=== PATIENT | female | born 1955 | race African-American/Black ===

== ENCOUNTER 2021-11-27 17:48 | Inpatient (IN) ==
[2021-11-27] MEDS ORDERED: ONDANSETRON 4 MG/2 ML VIAL IV STA (20:43)
[2021-11-27] MEDS ORDERED: KETOROLAC 30 MG/1 ML VIAL IV STA (20:43)
[2021-11-27] MEDS ORDERED: SODIUM CHLORIDE 0.9% 500 ML IV STA (20:43)
[2021-11-27] MEDS ORDERED: HYDROmorphone 2 MG/1 ML VIAL IV STA (20:43)
[2021-11-27 21:43] LABS: Basophils % 0.2 % (0.0-0.8); Eosinophils % 0.2 % (0.00-10.9); Hematocrit 35.5 VOL% (35.7-47.0); Hemoglobin 11.2 GM/DL (12.0-16.0); Immature Granulocytes % 0.6 %; Immature Granulocytes Absolute 0.06 #; Lymphocytes # 0.9 10*3/uL (1.4-4.0); Lymphocytes % 8.2 % (21.3-54.2); Mean Corpuscular HGB Conc 31.5 GM/DL (32-36); Monocytes % 9.7 % (1.7-12.7); Neutrophils % 81.1 % (38.7-73.9); Platelet Count 192 T/CUMM (130-400); Red Blood Count 3.99 MC/CUMM (3.8-5.5); Red Cell Distribution Width 15.5 % (9.3-17.3); White Blood Count 10.6 T/CUMM (4-12)
[2021-11-27 22:02] LABS: Ammonia < 10 UMOL/L (11-32)
[2021-11-27 22:05] LABS: Lactic Acid 1.6 MMOL/L (0.4-2.0)
[2021-11-27 22:10] LABS: Mucus,Urine Occasional /LPF (Occasional); RBC,Urine 473 /HPF (0-4); Squamous Epithelial Cell,Urine Occasional /HPF (0-10)
[2021-11-27 22:11] LABS: Glucose,Urine (UA) Negative (Negative); Protein,Urine Trace MG/DL; Urine Appearance Slightly Cloudy (Clear); Urine Color Yellow (Yellow); Urine pH 6.5 (4.5-8.0)
[2021-11-27 22:12] LABS: Bilirubin,Urine Negative (Negative); Blood, Urine Large mg/dL (Negative); Ketones,Urine Small mg/dL (Negative); Nitrite,Urine Negative (Negative); Urine Urobilinogen 0.2 EU/DL (<2.0)
[2021-11-27 22:52] LABS: Barbiturates Screen,Urine Negative (Negative); Benzodiazepines Screen,Urine Negative (Negative); Cannabinoid Screen,Urine Negative (Negative); Opiate Screen,Urine Positive (Negative); Phencyclidine Screen,Urine Negative (Negative)
[2021-11-27 22:59] LABS: Alanine Aminotransferase 19 U/L (13-56); Albumin 3.5 G/DL (3.4-5.0); Alkaline Phosphatase 140 U/L (45-117); Amylase 23 U/L (25-115); Aspartate Amino Transferase 40 U/L (0-37); Blood Urea Nitrogen 9 MG/DL (7-18); Carbon Dioxide 29 MMOL/L (21-32); Estimated Glom Filtration Rate 156 ML/MIN; Glucose 101 MG/DL (74-106); Osmolality,Calculated 281.1 MOS/KG (273-304); Sodium 142 MMOL/L (136-145)
[2021-11-27 23:01] LABS: Calcium 14.7 MG/DL (8.5-10.1)
[2021-11-27] MEDS ORDERED: SODIUM CHLORIDE 0.9% 1,000 ML IV STA (23:07)
[2021-11-27] MEDS ORDERED: POTASSIUM CHLORIDE 20 MEQ TABLET PO STA (23:07)
[2021-11-27] MEDS ORDERED: MAGNESIUM SULF RIDER 2 GM/50 ML PREMIX IV STA (23:07)
[2021-11-27] MEDS ORDERED: FUROSEMIDE 40 MG/4 ML VIAL IV STA (23:08)
[2021-11-28] MEDS ORDERED: GLUCAGON 1 MG VIAL IM PRN (00:19)
[2021-11-28] MEDS ORDERED: ACETAMINOPHEN 325 MG TABLET PO PRN (00:27)
[2021-11-28] MEDS ORDERED: SIMETHICONE CHEW 125 MG TABLET PO PRN (00:27)
[2021-11-28] MEDS ORDERED: hydrALAZINE 20 MG/1 ML VIAL IV PRN (00:27)
[2021-11-28] MEDS ORDERED: POTASSIUM CHLORIDE 20 MEQ TABLET PO PRN (00:37)
[2021-11-28] MEDS ORDERED: MAGNESIUM SULF RIDER 4 GM/100 ML PREMIX IV PRN (00:37)
[2021-11-28] MEDS ORDERED: DEXTROSE 10% 250 ML BAG IV PRN (00:40)
[2021-11-28] MEDS ORDERED: ENOXAPARIN 40 MG/0.4 ML SYRINGE SUBCUT ONE (01:00)
[2021-11-28 04:44] LABS: Basophils % 0.3 % (0.0-0.8); Eosinophils % 0.2 % (0.00-10.9); Hematocrit 40.8 VOL% (35.7-47.0); Hemoglobin 12.8 GM/DL (12.0-16.0); Immature Granulocytes % 0.5 %; Immature Granulocytes Absolute 0.04 #; Lymphocytes # 0.8 10*3/uL (1.4-4.0); Lymphocytes % 9.7 % (21.3-54.2); Mean Corpuscular HGB Conc 31.4 GM/DL (32-36); Mean Corpuscular Volume 90.1 FL (87-102); Mean Platelet Volume 13.1 FL (9.6-12.0); Monocytes % 8.8 % (1.7-12.7); Neutrophils % 80.5 % (38.7-73.9); Platelet Count 174 T/CUMM (130-400); Red Blood Count 4.53 MC/CUMM (3.8-5.5); Red Cell Distribution Width 15.7 % (9.3-17.3); White Blood Count 8.6 T/CUMM (4-12)
[2021-11-28 05:02] LABS: Parathyroid Hormone Intact < 6.3 PG/ML (18.4-80.1)
[2021-11-28] MEDS: LACTATED RINGERS 1,000 ML IV SCH ×2 (05:02→17:11)
[2021-11-28 05:05] LABS: Ferritin 968.8 ng/mL (8-252)
[2021-11-28 05:08] LABS: Folate 10.09 NG/ML (5.38-24.0); Vitamin B12 949 PG/ML (211-911)
[2021-11-28 05:10] LABS: Potassium 3.3 MMOL/L (3.5-5.1); Risk Ratio 1.96; Thyroid Stimulating Hormone 0.861 uIU/ml (0.358-3.74); VLDL Cholesterol 14.6 MG/DL
[2021-11-28] MEDS ORDERED: ZOLEDRONIC ACID 4 MG/100 ML PREMIX IV ONE (05:25)
[2021-11-28] MEDS: ONDANSETRON 4 MG/2 ML VIAL IV PRN (05:38)
[2021-11-28] MEDS: oxyCODONE/ACETAMINOPHEN 5-325 MG TABLET PO PRN (05:51)
[2021-11-28 05:54] LABS: Sedimentation Rate-Westergren 63 MM/HR (0-30)
[2021-11-28] MEDS ORDERED: oxyCODONE/ACETAMINOPHEN 5-325 MG TABLET PO PRN (08:28)
[2021-11-28 08:42] LABS: Hemoglobin A1 (Alkaline) 97.2 % (96.5-98.5); Hemoglobin A2 (Alkaline) 2.8 % (1.5-3.5)
[2021-11-28] MEDS: POTASSIUM CHLORIDE 10 MEQ TABLET PO SCH (08:50)
[2021-11-28] MEDS: MORPHINE ER 15 MG TABLET PO SCH ×2 (08:50→20:12)
[2021-11-28] MEDS: PREGABALIN 100 MG CAPSULE PO SCH ×2 (08:50→20:12)
[2021-11-28] MEDS: cloNIDine 0.1 MG TABLET PO SCH (08:50)
[2021-11-28] MEDS: ASPIRIN EC 81 MG TABLET PO SCH (08:50)
[2021-11-28] MEDS: LOSARTAN 50 MG TABLET PO SCH (08:51)
[2021-11-28] MEDS: SIMVASTATIN 10 MG TABLET PO SCH (08:51)
[2021-11-28] MEDS: PANTOPRAZOLE 40 MG TABLET PO SCH (08:51)
[2021-11-28 09:14] LABS: Total Protein 8.2 G/DL (6.4-8.2)
[2021-11-28] MEDS: MORPHINE 4 MG/1 ML VIAL IV PRN (09:34)
[2021-11-28] MEDS: DOCUSATE SODIUM 100 MG CAPSULE PO SCH ×2 (09:39→20:11)
[2021-11-28 11:05] LABS: Osmolality,Calculated 275.5 MOS/KG (273-304); Potassium 3.3 MMOL/L (3.5-5.1)
[2021-11-28 11:08] LABS: Calcium 14.1 MG/DL (8.5-10.1)
[2021-11-28] MEDS ORDERED: CALCITONIN 400 UNIT/2 ML VIAL SUBCUT ONE (16:00)
[2021-11-28 16:13] LABS: Osmolality,Calculated 272.7 MOS/KG (273-304); Potassium 3.4 MMOL/L (3.5-5.1)
[2021-11-28] MEDS ORDERED: ENOXAPARIN 40 MG/0.4 ML SYRINGE SUBCUT SCH (21:00)
[2021-11-28 22:14] LABS: Calcium 12.9 MG/DL (8.5-10.1); Osmolality,Calculated 280.1 MOS/KG (273-304); Potassium 3.3 MMOL/L (3.5-5.1)
[2021-11-29] MEDS: ONDANSETRON 4 MG/2 ML VIAL IV PRN (00:07)
[2021-11-29] MEDS: oxyCODONE/ACETAMINOPHEN 5-325 MG TABLET PO PRN ×3 (00:17→23:55)
[2021-11-29] MEDS: LACTATED RINGERS 1,000 ML IV SCH ×4 (01:26→21:05)
[2021-11-29 04:44] LABS: Basophils % 0.4 % (0.0-0.8); Eosinophils # 0.1 10*3/uL (0.0-0.87); Eosinophils % 0.6 % (0.00-10.9); Hematocrit 34.8 VOL% (35.7-47.0); Hemoglobin 10.9 GM/DL (12.0-16.0); Immature Granulocytes % 0.2 %; Immature Granulocytes Absolute 0.02 #; Lymphocytes # 1.1 10*3/uL (1.4-4.0); Lymphocytes % 13.2 % (21.3-54.2); Mean Corpuscular HGB Conc 31.3 GM/DL (32-36); Mean Corpuscular Volume 88.1 FL (87-102); Monocytes % 11.9 % (1.7-12.7); Neutrophils % 73.7 % (38.7-73.9); Platelet Count 142 T/CUMM (130-400); Red Blood Count 3.95 MC/CUMM (3.8-5.5); Red Cell Distribution Width 15.9 % (9.3-17.3); White Blood Count 8.1 T/CUMM (4-12)
[2021-11-29 04:55] LABS: INR 1.1; PT Patient Result 12.6 SECS (10.5-12.0)
[2021-11-29 05:13] LABS: Albumin 2.6 G/DL (3.4-5.0); Bilirubin,Total 0.4 MG/DL (0.20-1.00); Osmolality,Calculated 280.1 MOS/KG (273-304); Potassium 3.2 MMOL/L (3.5-5.1)
[2021-11-29 07:43] LABS: Total Protein (Chem) 8.2 G/DL (6.4-8.3)
[2021-11-29 07:45] LABS: Albumin (SPE) 4.7 G/DL (3.2-5.3); Albumin (SPE) Rel % 57.3 %; Alpha 1 (SPE) 0.3 G/DL (0.1-0.4); Alpha 1 (SPE) Rel % 3.7 %; Alpha 2 (SPE) 1.1 G/DL (0.4-1.0); Alpha 2 (SPE) Rel % 13.2 %; Beta (SPE) Rel % 12.6 %; Gamma (SPE) 1.1 G/DL (0.7-1.7); Gamma (SPE) Rel % 13.2 %
[2021-11-29] MEDS: DOCUSATE SODIUM 100 MG CAPSULE PO SCH ×2 (08:29→22:38)
[2021-11-29] MEDS: cloNIDine 0.1 MG TABLET PO SCH (08:29)
[2021-11-29] MEDS: PREGABALIN 100 MG CAPSULE PO SCH ×2 (08:29→22:38)
[2021-11-29] MEDS: ASPIRIN EC 81 MG TABLET PO SCH (08:29)
[2021-11-29] MEDS: LOSARTAN 50 MG TABLET PO SCH (08:29)
[2021-11-29] MEDS: POTASSIUM CHLORIDE 10 MEQ TABLET PO SCH (08:29)
[2021-11-29] MEDS: MORPHINE ER 15 MG TABLET PO SCH ×3 (08:30→23:00)
[2021-11-29] MEDS: SIMVASTATIN 10 MG TABLET PO SCH (08:30)
[2021-11-29] MEDS: PANTOPRAZOLE 40 MG TABLET PO SCH (08:30)
[2021-11-29] MEDS ORDERED: DIAZEPAM 5 MG TABLET PO ONE (11:47)
[2021-11-29 12:41] LABS: Immunoglobulin A 360 MG/DL (70-400); Immunoglobulin G 1080 MG/DL (700-1600); Immunoglobulin M 94 MG/DL (40-230)
[2021-11-29] MEDS ORDERED: ALPRAZolam 0.25 MG TABLET PO ONE (13:06)
[2021-11-29] MEDS: POTASSIUM CHLORIDE RIDER 10 MEQ/100 ML PREMIX IV PRN ×4 (13:11→18:30)
[2021-11-29 15:41] LABS: Kappa Free Light Chain 1.93 mg/dL; Lambda Free Light Chain 2.01 mg/dL
[2021-11-29] MEDS: MORPHINE 4 MG/1 ML VIAL IV PRN (22:07)
[2021-11-29] MEDS: MIRTAZAPINE 15 MG TABLET PO SCH (22:39)
[2021-11-30 02:48] LABS: Basophils % 0.2 % (0.0-0.8); Eosinophils # 0.1 10*3/uL (0.0-0.87); Eosinophils % 0.9 % (0.00-10.9); Hematocrit 34.9 VOL% (35.7-47.0); Immature Granulocytes % 0.4 %; Immature Granulocytes Absolute 0.03 #; Lymphocytes # 0.9 10*3/uL (1.4-4.0); Lymphocytes % 11.1 % (21.3-54.2); Mean Corpuscular HGB Conc 31.5 GM/DL (32-36); Mean Corpuscular Volume 88.4 FL (87-102); Mean Platelet Volume 12.4 FL (9.6-12.0); Monocytes % 11.7 % (1.7-12.7); Neutrophils % 75.7 % (38.7-73.9); Platelet Count 130 T/CUMM (130-400); Red Blood Count 3.95 MC/CUMM (3.8-5.5); Red Cell Distribution Width 15.7 % (9.3-17.3); White Blood Count 8.2 T/CUMM (4-12)
[2021-11-30 03:13] LABS: Alanine Aminotransferase 17 U/L (13-56); Albumin 2.5 G/DL (3.4-5.0); Alkaline Phosphatase 104 U/L (45-117); Aspartate Amino Transferase 34 U/L (0-37); Bilirubin,Total < 0.39 MG/DL (0.20-1.00); Blood Urea Nitrogen 8 MG/DL (7-18); Calcium 10.4 MG/DL (8.5-10.1); Carbon Dioxide 28 MMOL/L (21-32); Estimated Glom Filtration Rate 157 ML/MIN; Glucose 72 MG/DL (74-106); Osmolality,Calculated 269.8 MOS/KG (273-304); Potassium 3.1 MMOL/L (3.5-5.1); Sodium 137 MMOL/L (136-145); Total Protein 6.8 G/DL (6.4-8.2)
[2021-11-30] MEDS ORDERED: METOPROLOL TARTRATE 5 MG/5 ML VIAL IV ONE (03:24)
[2021-11-30] MEDS: MAGNESIUM SULF RIDER 2 GM/50 ML PREMIX IV PRN (04:11)
[2021-11-30] MEDS: MORPHINE 4 MG/1 ML VIAL IV PRN (04:59)
[2021-11-30] MEDS: POTASSIUM CHLORIDE RIDER 10 MEQ/100 ML PREMIX IV PRN ×2 (05:00→06:00)
[2021-11-30] MEDS: oxyCODONE/ACETAMINOPHEN 5-325 MG TABLET PO PRN ×3 (07:06→18:22)
[2021-11-30] MEDS: LACTATED RINGERS 1,000 ML IV SCH (07:06)
[2021-11-30] MEDS ORDERED: DEXAMETHASONE INJ 10 MG in SODIUM CHLORIDE 0.9% 50 ML IV SCH (09:00)
[2021-11-30] MEDS: ASPIRIN EC 81 MG TABLET PO SCH (09:11)
[2021-11-30] MEDS: LOSARTAN 50 MG TABLET PO SCH (09:11)
[2021-11-30] MEDS: POTASSIUM CHLORIDE 20 MEQ TABLET PO SCH (09:11)
[2021-11-30] MEDS: DOCUSATE SODIUM 100 MG CAPSULE PO SCH ×2 (09:12→20:19)
[2021-11-30] MEDS: SIMVASTATIN 10 MG TABLET PO SCH (09:12)
[2021-11-30] MEDS: PANTOPRAZOLE 40 MG TABLET PO SCH (09:12)
[2021-11-30] MEDS: PREGABALIN 100 MG CAPSULE PO SCH (09:12)
[2021-11-30] MEDS: cloNIDine 0.1 MG TABLET PO SCH (09:13)
[2021-11-30] MEDS: METOPROLOL TARTRATE 25 MG TABLET PO SCH (09:15)
[2021-11-30] MEDS: MORPHINE ER 15 MG TABLET PO SCH ×2 (09:15→20:19)
[2021-11-30] MEDS ORDERED: MAGNESIUM CITRATE 300 ML BOTTLE PO ONE (10:34)
[2021-11-30 11:36] LABS: Arterial Base Excess iSTAT 2 MMOL/L (-2.5-2.5); Arterial Bicarbonate iSTAT 27.5 MMOL/L (20-26); Arterial O2 Saturation iSTAT 98 % (95-100); Arterial PCO2 iSTAT 45 MM HG (35-48); Arterial PO2 iSTAT 112 MM HG (80-95); Arterial Total CO2 iSTAT 29 MMO/L (23-27); Arterial pH iSTAT 7.396 (7.35-7.45)
[2021-11-30] MEDS: LINACLOTIDE 145 MCG CAPSULE PO SCH (12:22)
[2021-11-30] MEDS: NYSTATIN 500,000 UNIT/5 ML UDCUP SWISH/SWAL SCH ×3 (13:43→20:18)
[2021-11-30] MEDS: DEXAMETHASONE INJ 20 MG in SODIUM CHLORIDE 0.9% 50 ML IV SCH (17:27)
[2021-11-30] MEDS: MIRTAZAPINE 15 MG TABLET PO SCH (20:19)
[2021-11-30] MEDS ORDERED: MELATONIN 3 MG TABLET PO ONE (21:28)
[2021-12-01] MEDS: oxyCODONE/ACETAMINOPHEN 5-325 MG TABLET PO PRN ×2 (03:40→08:26)
[2021-12-01 05:31] LABS: Basophils % 0.1 % (0.0-0.8); Hematocrit 34.6 VOL% (35.7-47.0); Immature Granulocytes % 0.3 %; Immature Granulocytes Absolute 0.02 #; Lymphocytes # 0.4 10*3/uL (1.4-4.0); Lymphocytes % 6.2 % (21.3-54.2); Mean Corpuscular HGB Conc 31.8 GM/DL (32-36); Mean Corpuscular Volume 87.6 FL (87-102); Monocytes % 1.3 % (1.7-12.7); Neutrophils % 92.1 % (38.7-73.9); Platelet Count 123 T/CUMM (130-400); Red Blood Count 3.95 MC/CUMM (3.8-5.5); Red Cell Distribution Width 15.5 % (9.3-17.3); White Blood Count 6.7 T/CUMM (4-12)
[2021-12-01 05:50] LABS: Albumin 2.7 G/DL (3.4-5.0); Bilirubin,Total 0.4 MG/DL (0.20-1.00); Calcium 9.6 MG/DL (8.5-10.1); Osmolality,Calculated 277.4 MOS/KG (273-304); Potassium 3.6 MMOL/L (3.5-5.1); Total Protein 7.5 G/DL (6.4-8.2)
[2021-12-01 06:13] LABS: Band Neutrophils 1 % (0-10); Hypochromia 1+; Lymphocytes 4 % (20-55); Microcytosis 1+; Platelet Estimate Adequate; Segmented Neutrophils 92 % (50-85); Total Cells Counted 100
[2021-12-01] MEDS: PANTOPRAZOLE 40 MG TABLET PO SCH (08:24)
[2021-12-01] MEDS: DOCUSATE SODIUM 100 MG CAPSULE PO SCH ×2 (08:24→21:06)
[2021-12-01] MEDS: LOSARTAN 50 MG TABLET PO SCH (08:24)
[2021-12-01] MEDS: ASPIRIN EC 81 MG TABLET PO SCH (08:25)
[2021-12-01] MEDS: MORPHINE ER 15 MG TABLET PO SCH ×2 (08:26→21:06)
[2021-12-01] MEDS: LINACLOTIDE 145 MCG CAPSULE PO SCH (08:26)
[2021-12-01] MEDS: METOPROLOL TARTRATE 25 MG TABLET PO SCH (08:26)
[2021-12-01] MEDS: POTASSIUM CHLORIDE 20 MEQ TABLET PO SCH (08:27)
[2021-12-01] MEDS: NYSTATIN 500,000 UNIT/5 ML UDCUP SWISH/SWAL SCH ×4 (08:27→21:07)
[2021-12-01] MEDS: MAGNESIUM SULF RIDER 2 GM/50 ML PREMIX IV PRN (08:34)
[2021-12-01] MEDS ORDERED: METHYLNALTREXONE 12 MG/0.6 ML VIAL SUBCUT ONE (09:07)
[2021-12-01] MEDS: PREGABALIN 100 MG CAPSULE PO SCH ×2 (10:46→21:06)
[2021-12-01] MEDS: SIMVASTATIN 10 MG TABLET PO SCH (10:46)
[2021-12-01] MEDS: DEXAMETHASONE INJ 20 MG in SODIUM CHLORIDE 0.9% 50 ML IV SCH (10:50)
[2021-12-01 11:06] LABS: % Iron Saturation 13.1 % (18-50); Ferritin 987.2 ng/mL (8-252)
[2021-12-01] MEDS ORDERED: ENOXAPARIN 40 MG/0.4 ML SYRINGE SUBCUT SCH (12:00)
[2021-12-01] MEDS: levETIRAcetam 500 MG TABLET PO SCH ×2 (12:05→21:07)
[2021-12-01] MEDS: FLUCONAZOLE INJ 200 MG/100 ML PREMIX IV SCH (12:06)
[2021-12-01] MEDS: NICOTINE 21 MG/24 HR PATCH TRANSDERM SCH (12:06)
[2021-12-01 13:38] LABS: Total Protein 24 Hr Ur Result 432 MG/24HR (0-149.1); Total Volume,Urine 1600 ML (400-2000)
[2021-12-01] MEDS: MIRTAZAPINE 15 MG TABLET PO SCH (21:06)
[2021-12-02] MEDS ORDERED: MELATONIN 3 MG TABLET PO PRN (01:25)
[2021-12-02 05:59] LABS: Basophils % 0.1 % (0.0-0.8); Hematocrit 32.4 VOL% (35.7-47.0); Hemoglobin 10.6 GM/DL (12.0-16.0); Immature Granulocytes % 0.3 %; Immature Granulocytes Absolute 0.03 #; Lymphocytes # 0.4 10*3/uL (1.4-4.0); Lymphocytes % 3.7 % (21.3-54.2); Mean Corpuscular HGB Conc 32.7 GM/DL (32-36); Mean Corpuscular Volume 85.5 FL (87-102); Mean Platelet Volume 13.1 FL (9.6-12.0); Monocytes % 5.6 % (1.7-12.7); Neutrophils % 90.3 % (38.7-73.9); Platelet Count 138 T/CUMM (130-400); Red Blood Count 3.79 MC/CUMM (3.8-5.5); Red Cell Distribution Width 15.6 % (9.3-17.3); White Blood Count 9.3 T/CUMM (4-12)
[2021-12-02 06:17] LABS: Alanine Aminotransferase 23 U/L (13-56); Albumin 2.7 G/DL (3.4-5.0); Alkaline Phosphatase 103 U/L (45-117); Aspartate Amino Transferase 34 U/L (0-37); Bilirubin,Total < 0.39 MG/DL (0.20-1.00); Blood Urea Nitrogen 14 MG/DL (7-18); Carbon Dioxide 27 MMOL/L (21-32); Estimated Glom Filtration Rate 157 ML/MIN; Glucose 125 MG/DL (74-106); Osmolality,Calculated 278.5 MOS/KG (273-304); Potassium 3.3 MMOL/L (3.5-5.1); Sodium 139 MMOL/L (136-145); Total Protein 7.1 G/DL (6.4-8.2)
[2021-12-02 06:21] LABS: Lymphocytes 3 % (20-55); Segmented Neutrophils 92 % (50-85); Total Cells Counted 100
[2021-12-02 06:22] LABS: Hypochromia Slight; Microcytosis Slight; Platelet Estimate Adequate
[2021-12-02 07:07] LABS: 24 Hr Protein (Bench) 432 MG/24HR (0-149.1); Immunoglobulin A (Chem) 360 MG/DL (70-400); Immunoglobulin G (Chem) 1080 MG/DL (700-1600); Immunoglobulin M (Chem) 94 MG/DL (40-230)
[2021-12-02 08:11] VITALS: BP 119/70
[2021-12-02] MEDS: ASPIRIN EC 81 MG TABLET PO SCH (08:17)
[2021-12-02] MEDS: POTASSIUM CHLORIDE 20 MEQ TABLET PO SCH (08:17)
[2021-12-02] MEDS: PREGABALIN 100 MG CAPSULE PO SCH (08:18)
[2021-12-02] MEDS: DOCUSATE SODIUM 100 MG CAPSULE PO SCH (08:18)
[2021-12-02] MEDS: PANTOPRAZOLE 40 MG TABLET PO SCH (08:18)
[2021-12-02] MEDS: MORPHINE ER 15 MG TABLET PO SCH (08:18)
[2021-12-02] MEDS: levETIRAcetam 500 MG TABLET PO SCH (08:18)
[2021-12-02] MEDS: SIMVASTATIN 10 MG TABLET PO SCH (08:18)
[2021-12-02] MEDS: NICOTINE 21 MG/24 HR PATCH TRANSDERM SCH (08:19)
[2021-12-02] MEDS: DEXAMETHASONE INJ 20 MG in SODIUM CHLORIDE 0.9% 50 ML IV SCH (08:19)
[2021-12-02] MEDS: LOSARTAN 50 MG TABLET PO SCH (08:22)
[2021-12-02] MEDS: METOPROLOL TARTRATE 25 MG TABLET PO SCH (08:25)
[2021-12-02] MEDS: NYSTATIN 500,000 UNIT/5 ML UDCUP SWISH/SWAL SCH (08:33)
[2021-12-02] MEDS: LINACLOTIDE 145 MCG CAPSULE PO SCH (09:43)
[2021-12-02] MEDS: FLUCONAZOLE INJ 200 MG/100 ML PREMIX IV SCH (11:31)
== END 2021-12-02 11:27 | disposition home health service (06) | DRG 425 ==
LOC: N.ED 17:48 → N.EDINP 11-28 00:19 → SUATTDRO 11-28 00:19 → N.TELES 11-28 01:59
PROVIDERS: ADMIT Hospitalist; ATTEND Internal Medicine Geriatric Medicine

== ENCOUNTER 2022-01-06 14:19 | Inpatient (IN) ==
[2022-01-06] MEDS ORDERED: SODIUM CHLORIDE 0.9% 1,000 ML IV STA (14:24)
[2022-01-06 14:43] LABS: Arterial Base Excess iSTAT 0 MMOL/L (-2.5-2.5); Arterial Bicarbonate iSTAT 25.4 MMOL/L (20-26); Arterial O2 Saturation iSTAT 93 % (95-100); Arterial PCO2 iSTAT 43 MM HG (35-48); Arterial PO2 iSTAT 68 MM HG (80-95); Arterial Total CO2 iSTAT 27 MMO/L (23-27); Arterial pH iSTAT 7.376 (7.35-7.45)
[2022-01-06] MEDS ORDERED: MIDAZOLAM 2 MG/2 ML VIAL ONE (14:48)
[2022-01-06] MEDS ORDERED: MIDAZOLAM 2 MG/2 ML VIAL IV STA ×2 (14:48→15:41)
[2022-01-06] MEDS ORDERED: ETOMIDATE 20 MG/10 ML VIAL IV ONE (14:48)
[2022-01-06] MEDS ORDERED: NOREPINEPHRINE 4 MG/4 ML VIAL IV ONE (14:53)
[2022-01-06] MEDS: NOREPINEPHRINE 8 MG in SODIUM CHLORIDE 0.9% 242 ML IV PRN (15:00)
[2022-01-06] MEDS ORDERED: ROCURONIUM 100 MG/10 ML VIAL IV ONE (15:23)
[2022-01-06] MEDS ORDERED: ROCURONIUM 100 MG/10 ML VIAL IV STA (15:35)
[2022-01-06] MEDS ORDERED: PIPERACILLIN/TAZOBACTAM 3,375 MG in SODIUM CHLORIDE 0.9% 100 ML IV STA (16:03)
[2022-01-06] MEDS: MIDAZOLAM 100 MG in SODIUM CHLORIDE 0.9% 80 ML IV PRN (16:05)
[2022-01-06 16:10] LABS: Basophils % 0.1 % (0.0-0.8); Hematocrit 38.8 VOL% (35.7-47.0); Immature Granulocytes % 0.8 %; Immature Granulocytes Absolute 0.07 #; Lymphocytes # 0.5 10*3/uL (1.4-4.0); Lymphocytes % 5.8 % (21.3-54.2); Mean Corpuscular HGB Conc 30.9 GM/DL (32-36); Mean Corpuscular Volume 93.7 FL (87-102); Mean Platelet Volume 12.4 FL (9.6-12.0); Monocytes # 0.5 10*3/uL (0.11-0.8); Neutrophils % 87.3 % (38.7-73.9); Platelet Count 127 T/CUMM (130-400); Red Blood Count 4.14 MC/CUMM (3.8-5.5); Red Cell Distribution Width 18.2 % (9.3-17.3); White Blood Count 8.9 T/CUMM (4-12)
[2022-01-06] MEDS ORDERED: SODIUM CHLORIDE 0.9% 2,000 ML IV STA (16:13)
[2022-01-06 16:17] LABS: Hyaline Casts,Urine 53 /LPF (0-3); Mucus,Urine Few /LPF (Occasional); RBC,Urine 24 /HPF (0-4); Squamous Epithelial Cell,Urine Occasional /HPF (0-10)
[2022-01-06 16:20] LABS: Urine Color Yellow (Yellow)
[2022-01-06 16:21] LABS: Bilirubin,Urine Negative (Negative); Blood, Urine Moderate mg/dL (Negative); Glucose,Urine (UA) Negative (Negative); Ketones,Urine Negative (Negative); Nitrite,Urine Negative (Negative); Protein,Urine 30 mg/dL (Negative); Urine Appearance Slightly Cloudy (Clear)
[2022-01-06 16:31] LABS: Albumin 2.1 G/DL (3.4-5.0); Bilirubin,Total 0.8 MG/DL (0.20-1.00); Calcium 9.7 MG/DL (8.5-10.1); Osmolality,Calculated 293.1 MOS/KG (273-304); Potassium 4.3 MMOL/L (3.5-5.1); Total Protein 6.4 G/DL (6.4-8.2)
[2022-01-06 16:35] LABS: Arterial Base Excess iSTAT -3 MMOL/L (-2.5-2.5); Arterial Bicarbonate iSTAT 24.3 MMOL/L (20-26); Arterial O2 Saturation iSTAT 99 % (95-100); Arterial PCO2 iSTAT 52 MM HG (35-48); Arterial PO2 iSTAT 185 MM HG (80-95); Arterial Total CO2 iSTAT 26 MMO/L (23-27); Arterial pH iSTAT 7.281 (7.35-7.45)
[2022-01-06] MEDS ORDERED: ALBUTEROL 2.5 MG/3 ML NEB RESP TX PRN (17:40)
[2022-01-06] MEDS ORDERED: fentaNYL INJ 1,250 MCG in SODIUM CHLORIDE 0.9% 225 ML IV PRN (17:41)
[2022-01-06] MEDS ORDERED: ACETAMINOPHEN 325 MG TABLET PO PRN (17:41)
[2022-01-06] MEDS ORDERED: GLUCAGON 1 MG VIAL IM PRN (17:44)
[2022-01-06] MEDS ORDERED: DEXTROSE 10% 250 ML BAG IV PRN (17:47)
[2022-01-06 18:00] LABS: Band Neutrophils 6 % (0-10); Lymphocytes 4 % (20-55); Total Cells Counted 100
[2022-01-06 18:01] LABS: Atypical Lymphocytes Few; Platelet Estimate Adequate; Polychromasia Slight; Target Cells Slight
[2022-01-06] MEDS: MORPHINE 2 MG/1 ML SYRINGE IV PRN (18:30)
[2022-01-06 18:35] LABS: Arterial Base Excess iSTAT -5 MMOL/L (-2.5-2.5); Arterial Bicarbonate iSTAT 21.2 MMOL/L (20-26); Arterial O2 Saturation iSTAT 96 % (95-100); Arterial PCO2 iSTAT 41 MM HG (35-48); Arterial PO2 iSTAT 90 MM HG (80-95); Arterial Total CO2 iSTAT 22 MMO/L (23-27); Arterial pH iSTAT 7.326 (7.35-7.45)
[2022-01-06] MEDS: SODIUM CHLORIDE 0.9% 1,000 ML IV SCH (18:53)
[2022-01-06] MEDS: INSULIN REGULAR 100 UNIT/ML SUBCUT SCH (18:53)
[2022-01-06] MEDS ORDERED: SODIUM CHLORIDE 0.9% 1,000 ML IV ONE (19:05)
[2022-01-06] MEDS ORDERED: ENOXAPARIN 30 MG/0.3 ML SYRINGE SUBCUT SCH (21:00)
[2022-01-06] MEDS: PANTOPRAZOLE 40 MG VIAL IV SCH (22:25)
[2022-01-06] MEDS: levETIRAcetam 500 MG TABLET PO SCH (22:25)
[2022-01-06] MEDS: VANCOMYCIN INJ 1,750 MG in SODIUM CHLORIDE 0.9% 500 ML IV SCH (22:26)
[2022-01-07] MEDS: INSULIN REGULAR 100 UNIT/ML SUBCUT SCH ×4 (00:38→18:15)
[2022-01-07] MEDS: PIPERACILLIN/TAZOBACTAM 3,375 MG in SODIUM CHLORIDE 0.9% 100 ML IV SCH ×3 (00:46→16:02)
[2022-01-07] MEDS: SODIUM CHLORIDE 0.9% 1,000 ML IV SCH (03:19)
[2022-01-07 04:17] LABS: Hematocrit 34.6 VOL% (35.7-47.0); Hemoglobin 10.9 GM/DL (12.0-16.0); Immature Granulocytes % 0.8 %; Immature Granulocytes Absolute 0.05 #; Lymphocytes # 0.5 10*3/uL (1.4-4.0); Lymphocytes % 7.5 % (21.3-54.2); Mean Corpuscular HGB Conc 31.5 GM/DL (32-36); Mean Corpuscular Volume 92.3 FL (87-102); Mean Platelet Volume 12.5 FL (9.6-12.0); Monocytes # 0.5 10*3/uL (0.11-0.8); Monocytes % 7.8 % (1.7-12.7); Neutrophils % 83.9 % (38.7-73.9); Platelet Count 114 T/CUMM (130-400); Red Blood Count 3.75 MC/CUMM (3.8-5.5); Red Cell Distribution Width 18.1 % (9.3-17.3); White Blood Count 6.1 T/CUMM (4-12)
[2022-01-07 04:18] LABS: ABG Base Excess -4.2 MMOL/L (-2.5-2.5); ABG HCO3 20.9 MMOL/L (20-26); ABG Oxygen Saturation 99.6 % (95-100); ABG PCO2 33.3 MM HG (35-48); ABG PH 7.387 (7.35-7.45)
[2022-01-07 04:38] LABS: Albumin 1.7 G/DL (3.4-5.0); Band Neutrophils 1 % (0-10); Bilirubin,Total 0.6 MG/DL (0.20-1.00); Calcium 8.5 MG/DL (8.5-10.1); Lymphocytes 10 % (20-55); Osmolality,Calculated 295.4 MOS/KG (273-304); Potassium 4.1 MMOL/L (3.5-5.1); Total Cells Counted 100; Total Protein 5.5 G/DL (6.4-8.2)
[2022-01-07 04:39] LABS: Hypochromia Slight; Microcytosis Slight
[2022-01-07 04:55] LABS: Free T4 (Free Thyroxine) 0.97 NG/DL (0.76-1.46); Thyroid Stimulating Hormone 0.435 uIU/ml (0.358-3.74)
[2022-01-07] MEDS ORDERED: LACTATED RINGERS 500 ML IV ONE (07:55)
[2022-01-07] MEDS: MORPHINE 2 MG/1 ML SYRINGE IV PRN ×3 (08:11→17:31)
[2022-01-07] MEDS ORDERED: MAGNESIUM SULF RIDER 4 GM/100 ML PREMIX IV PRN (08:27)
[2022-01-07] MEDS ORDERED: LACTATED RINGERS 1,000 ML IV SCH (08:30)
[2022-01-07] MEDS: HYDROCORTISONE 100 MG VIAL IV SCH ×2 (08:32→16:02)
[2022-01-07] MEDS: levETIRAcetam 500 MG TABLET PO SCH ×2 (08:33→21:10)
[2022-01-07] MEDS: NOREPINEPHRINE 8 MG in SODIUM CHLORIDE 0.9% 242 ML IV PRN (09:50)
[2022-01-07] MEDS: MIDAZOLAM 100 MG in SODIUM CHLORIDE 0.9% 80 ML IV PRN (10:22)
[2022-01-07] MEDS: DEXTROSE 5% NACL 0.45% 1,000 ML IV SCH ×2 (12:18→22:39)
[2022-01-07 17:43] LABS: Calcium 8.8 MG/DL (8.5-10.1); Osmolality,Calculated 287.1 MOS/KG (273-304); Potassium 3.6 MMOL/L (3.5-5.1)
[2022-01-07] MEDS: PANTOPRAZOLE 40 MG VIAL IV SCH (21:07)
[2022-01-07] MEDS: VANCOMYCIN INJ 1,750 MG in SODIUM CHLORIDE 0.9% 500 ML IV SCH (21:08)
[2022-01-07] MEDS: ENOXAPARIN 40 MG/0.4 ML SYRINGE SUBCUT SCH (21:09)
[2022-01-08] MEDS: HYDROCORTISONE 100 MG VIAL IV SCH ×4 (00:24→23:56)
[2022-01-08] MEDS: INSULIN REGULAR 100 UNIT/ML SUBCUT SCH ×5 (00:24→23:34)
[2022-01-08] MEDS: PIPERACILLIN/TAZOBACTAM 3,375 MG in SODIUM CHLORIDE 0.9% 100 ML IV SCH ×4 (00:25→23:57)
[2022-01-08] MEDS: MIDAZOLAM 100 MG in SODIUM CHLORIDE 0.9% 80 ML IV PRN (02:47)
[2022-01-08 03:51] LABS: ABG HCO3 22.8 MMOL/L (20-26); ABG Oxygen Saturation 99.2 % (95-100); ABG PCO2 36.3 MM HG (35-48); ABG PH 7.399 (7.35-7.45); ABG TCO2 20.4 MMOL/L (23-27)
[2022-01-08 04:04] LABS: Basophils % 0.2 % (0.0-0.8); Hematocrit 31.6 VOL% (35.7-47.0); Immature Granulocytes Absolute 0.06 #; Lymphocytes # 0.3 10*3/uL (1.4-4.0); Mean Corpuscular HGB Conc 31.6 GM/DL (32-36); Mean Corpuscular Volume 92.7 FL (87-102); Mean Platelet Volume 12.5 FL (9.6-12.0); Monocytes # 0.4 10*3/uL (0.11-0.8); Monocytes % 6.5 % (1.7-12.7); Neutrophils % 87.3 % (38.7-73.9); Platelet Count 102 T/CUMM (130-400); Red Blood Count 3.41 MC/CUMM (3.8-5.5); Red Cell Distribution Width 17.9 % (9.3-17.3); White Blood Count 5.8 T/CUMM (4-12)
[2022-01-08 04:18] LABS: Alanine Aminotransferase 38 U/L (13-56); Albumin 1.7 G/DL (3.4-5.0); Alkaline Phosphatase 122 U/L (45-117); Aspartate Amino Transferase 28 U/L (0-37); Bilirubin,Total < 0.39 MG/DL (0.20-1.00); Blood Urea Nitrogen 18 MG/DL (7-18); Calcium 8.5 MG/DL (8.5-10.1); Carbon Dioxide 24 MMOL/L (21-32); Chloride 113 MMOL/L (98-107); Estimated Glom Filtration Rate 166 ML/MIN; Glucose 181 MG/DL (74-106); Potassium 3.3 MMOL/L (3.5-5.1); Sodium 143 MMOL/L (136-145); Total Protein 5.5 G/DL (6.4-8.2)
[2022-01-08 04:40] LABS: % Iron Saturation 33.3 % (18-50); Ferritin 2365.7 ng/mL (8-252)
[2022-01-08] MEDS ORDERED: POTASSIUM CHLORIDE RIDER 20 MEQ/100 ML PREMIX IV PRN (04:54)
[2022-01-08] MEDS: MAGNESIUM SULF RIDER 2 GM/50 ML PREMIX IV PRN (05:21)
[2022-01-08] MEDS: levETIRAcetam 500 MG TABLET PO SCH ×2 (08:34→21:40)
[2022-01-08] MEDS: DEXTROSE 5% NACL 0.45% 1,000 ML IV SCH ×2 (09:23→23:34)
[2022-01-08] MEDS ORDERED: MORPHINE 2 MG/1 ML SYRINGE IV ONE (09:53)
[2022-01-08] MEDS ORDERED: POTASSIUM PHOSPHATE 40 MMOL in SODIUM CHLORIDE 0.9% 250 ML IV ONE (10:00)
[2022-01-08] MEDS: ENOXAPARIN 40 MG/0.4 ML SYRINGE SUBCUT SCH (21:40)
[2022-01-08] MEDS: PANTOPRAZOLE 40 MG VIAL IV SCH (21:40)
[2022-01-08] MEDS: VANCOMYCIN INJ 1,750 MG in SODIUM CHLORIDE 0.9% 500 ML IV SCH (21:40)
[2022-01-08] MEDS: MORPHINE 2 MG/1 ML SYRINGE IV PRN (23:56)
[2022-01-09] MEDS: DEXTROSE 5% NACL 0.45% 1,000 ML IV SCH (03:23)
[2022-01-09 04:07] LABS: Basophils % 0.2 % (0.0-0.8); Hematocrit 31.2 VOL% (35.7-47.0); Hemoglobin 9.8 GM/DL (12.0-16.0); Immature Granulocytes Absolute 0.13 #; Lymphocytes # 0.3 10*3/uL (1.4-4.0); Lymphocytes % 4.7 % (21.3-54.2); Mean Corpuscular HGB Conc 31.4 GM/DL (32-36); Mean Platelet Volume 12.1 FL (9.6-12.0); Monocytes # 0.4 10*3/uL (0.11-0.8); Monocytes % 5.7 % (1.7-12.7); Neutrophils % 87.4 % (38.7-73.9); Platelet Count 101 T/CUMM (130-400); Red Blood Count 3.39 MC/CUMM (3.8-5.5); Red Cell Distribution Width 17.8 % (9.3-17.3); White Blood Count 6.6 T/CUMM (4-12)
[2022-01-09 04:23] LABS: Calcium 8.9 MG/DL (8.5-10.1); Osmolality,Calculated 288.8 MOS/KG (273-304); Potassium 3.5 MMOL/L (3.5-5.1)
[2022-01-09 04:41] LABS: Lymphocytes 9 % (20-55); Total Cells Counted 100
[2022-01-09 04:42] LABS: Platelet Estimate Decreased
[2022-01-09] MEDS: MORPHINE 2 MG/1 ML SYRINGE IV PRN ×5 (05:21→19:57)
[2022-01-09] MEDS: INSULIN REGULAR 100 UNIT/ML SUBCUT SCH ×3 (05:40→17:12)
[2022-01-09] MEDS: levETIRAcetam 500 MG TABLET PO SCH ×2 (08:55→20:01)
[2022-01-09] MEDS: HYDROCORTISONE 100 MG VIAL IV SCH ×2 (08:56→15:54)
[2022-01-09] MEDS: PIPERACILLIN/TAZOBACTAM 3,375 MG in SODIUM CHLORIDE 0.9% 100 ML IV SCH ×2 (08:57→15:55)
[2022-01-09] MEDS ORDERED: FUROSEMIDE 40 MG/4 ML VIAL IV ONE (08:58)
[2022-01-09] MEDS ORDERED: fentaNYL 25 MCG/HR PATCH TRANSDERM SCH (09:00)
[2022-01-09 17:25] LABS: Arterial Base Excess iSTAT 3 MMOL/L (-2.5-2.5); Arterial O2 Saturation iSTAT 99 % (95-100); Arterial PCO2 iSTAT 40 MM HG (35-48); Arterial PO2 iSTAT 159 MM HG (80-95); Arterial Total CO2 iSTAT 28 MMO/L (23-27); Arterial pH iSTAT 7.434 (7.35-7.45)
[2022-01-09 17:25] LABS: Arterial Base Excess iSTAT 4 MMOL/L (-2.5-2.5); Arterial Bicarbonate iSTAT 27.8 MMOL/L (20-26); Arterial O2 Saturation iSTAT 99 % (95-100); Arterial PCO2 iSTAT 37 MM HG (35-48); Arterial PO2 iSTAT 137 MM HG (80-95); Arterial Total CO2 iSTAT 29 MMO/L (23-27); Arterial pH iSTAT 7.487 (7.35-7.45)
[2022-01-09] MEDS: LORazepam 2 MG/1 ML VIAL IV PRN (18:26)
[2022-01-09 18:39] LABS: Calcium 8.5 MG/DL (8.5-10.1); Osmolality,Calculated 288.8 MOS/KG (273-304); Potassium 3.2 MMOL/L (3.5-5.1)
[2022-01-09] MEDS: POTASSIUM CHLORIDE 20 MEQ TABLET PO PRN ×2 (19:57→22:08)
[2022-01-09] MEDS: PANTOPRAZOLE 40 MG VIAL IV SCH (20:00)
[2022-01-09] MEDS: ENOXAPARIN 40 MG/0.4 ML SYRINGE SUBCUT SCH (20:00)
[2022-01-09] MEDS ORDERED: POTASSIUM PHOSPHATE 30 MMOL in SODIUM CHLORIDE 0.9% 250 ML IV ONE (20:10)
[2022-01-09] MEDS: MAGNESIUM SULF RIDER 2 GM/50 ML PREMIX IV PRN (20:15)
[2022-01-10] MEDS: PIPERACILLIN/TAZOBACTAM 3,375 MG in SODIUM CHLORIDE 0.9% 100 ML IV SCH ×3 (00:32→16:45)
[2022-01-10] MEDS: POTASSIUM CHLORIDE 20 MEQ TABLET PO PRN ×4 (00:35→23:19)
[2022-01-10] MEDS: MORPHINE 2 MG/1 ML SYRINGE IV PRN ×6 (00:35→20:47)
[2022-01-10] MEDS: INSULIN REGULAR 100 UNIT/ML SUBCUT SCH ×4 (00:48→18:12)
[2022-01-10] MEDS: HYDROCORTISONE 100 MG VIAL IV SCH ×3 (00:49→20:55)
[2022-01-10 05:09] LABS: Arterial Base Excess iSTAT 8 MMOL/L (-2.5-2.5); Arterial O2 Saturation iSTAT 99 % (95-100); Arterial PCO2 iSTAT 46 MM HG (35-48); Arterial PO2 iSTAT 137 MM HG (80-95); Arterial Total CO2 iSTAT 34 MMO/L (23-27); Arterial pH iSTAT 7.468 (7.35-7.45)
[2022-01-10 05:13] LABS: ABG Base Excess 4.9 MMOL/L (-2.5-2.5); ABG HCO3 28.9 MMOL/L (20-26); ABG Oxygen Saturation 97.9 % (95-100); ABG PCO2 56.3 MM HG (35-48); ABG PH 7.357 (7.35-7.45); ABG TCO2 29.2 MMOL/L (23-27)
[2022-01-10 05:33] LABS: Basophils % 0.3 % (0.0-0.8); Hematocrit 30.3 VOL% (35.7-47.0); Hemoglobin 9.7 GM/DL (12.0-16.0); Immature Granulocytes % 4.3 %; Immature Granulocytes Absolute 0.31 #; Lymphocytes # 0.4 10*3/uL (1.4-4.0); Lymphocytes % 5.9 % (21.3-54.2); Mean Corpuscular Volume 90.4 FL (87-102); Mean Platelet Volume 12.8 FL (9.6-12.0); Monocytes # 0.4 10*3/uL (0.11-0.8); Monocytes % 6.1 % (1.7-12.7); Neutrophils % 83.4 % (38.7-73.9); Platelet Count 105 T/CUMM (130-400); Red Blood Count 3.35 MC/CUMM (3.8-5.5); Red Cell Distribution Width 17.4 % (9.3-17.3); White Blood Count 7.2 T/CUMM (4-12)
[2022-01-10 05:45] LABS: Alanine Aminotransferase 55 U/L (13-56); Albumin 1.9 G/DL (3.4-5.0); Alkaline Phosphatase 120 U/L (45-117); Aspartate Amino Transferase 34 U/L (0-37); Bilirubin,Total < 0.39 MG/DL (0.20-1.00); Blood Urea Nitrogen 14 MG/DL (7-18); Calcium 8.9 MG/DL (8.5-10.1); Carbon Dioxide 32 MMOL/L (21-32); Chloride 107 MMOL/L (98-107); Estimated Glom Filtration Rate 170 ML/MIN; Glucose 123 MG/DL (74-106); Osmolality,Calculated 287.8 MOS/KG (273-304); Potassium 4.1 MMOL/L (3.5-5.1); Sodium 144 MMOL/L (136-145); Total Protein 5.7 G/DL (6.4-8.2)
[2022-01-10 06:13] LABS: Band Neutrophils 12 % (0-10); Lymphocytes 7 % (20-55); Platelet Estimate Adequate; Total Cells Counted 100
[2022-01-10 06:14] LABS: Anisocytosis 1+
[2022-01-10] MEDS ORDERED: HYDROmorphone 1 MG/1 ML SYRINGE IV PRN (07:40)
[2022-01-10] MEDS: LORazepam 2 MG/1 ML VIAL IV PRN (08:26)
[2022-01-10] MEDS: levETIRAcetam 500 MG TABLET PO SCH ×2 (08:27→20:55)
[2022-01-10] MEDS: POLYETHYLENE GLYCOL POWDER 17 GM PACK PO SCH (08:27)
[2022-01-10 08:42] LABS: Arterial Base Excess iSTAT 6 MMOL/L (-2.5-2.5); Arterial Bicarbonate iSTAT 31.8 MMOL/L (20-26); Arterial O2 Saturation iSTAT 98 % (95-100); Arterial PCO2 iSTAT 49 MM HG (35-48); Arterial PO2 iSTAT 98 MM HG (80-95); Arterial Total CO2 iSTAT 33 MMO/L (23-27); Arterial pH iSTAT 7.422 (7.35-7.45)
[2022-01-10] MEDS ORDERED: LORazepam 2 MG/1 ML VIAL IV ONE (15:24)
[2022-01-10 18:55] LABS: Bacteria,Urine Occasional /HPF (Few); Bilirubin,Urine Negative (Negative); Blood, Urine Trace mg/dL (Negative); Glucose,Urine (UA) Negative (Negative); Ketones,Urine Negative (Negative); Nitrite,Urine Negative (Negative); Protein,Urine Negative (Negative); RBC,Urine 2 /HPF (0-4); Urine Appearance Clear (Clear); Urine Color Colorless (Yellow); Urine Urobilinogen 0.2 eU/dL (<2.0); Urine pH 8.5 (4.5-8.0)
[2022-01-10 19:04] LABS: Calcium 9.7 MG/DL (8.5-10.1); Osmolality,Calculated 278.4 MOS/KG (273-304); Potassium 3.2 MMOL/L (3.5-5.1)
[2022-01-10] MEDS: PANTOPRAZOLE 40 MG VIAL IV SCH (20:49)
[2022-01-10] MEDS: ENOXAPARIN 40 MG/0.4 ML SYRINGE SUBCUT SCH (20:58)
[2022-01-10] MEDS ORDERED: ACETAMINOPHEN 325 MG/10.15 ML UDCUP PO ONE (23:36)
[2022-01-11] MEDS: INSULIN REGULAR 100 UNIT/ML SUBCUT SCH ×4 (00:08→17:24)
[2022-01-11 00:09] LABS: Arterial Base Excess iSTAT 8 MMOL/L (-2.5-2.5); Arterial O2 Saturation iSTAT 96 % (95-100); Arterial PCO2 iSTAT 38 MM HG (35-48); Arterial PO2 iSTAT 72 MM HG (80-95); Arterial Total CO2 iSTAT 32 MMO/L (23-27); Arterial pH iSTAT 7.524 (7.35-7.45)
[2022-01-11] MEDS ORDERED: METOPROLOL TARTRATE 5 MG/5 ML VIAL IV ONE ×2 (00:12→11:51)
[2022-01-11 00:17] LABS: Calcium 9.4 MG/DL (8.5-10.1); Osmolality,Calculated 280.3 MOS/KG (273-304); Potassium 3.4 MMOL/L (3.5-5.1)
[2022-01-11] MEDS: MORPHINE 2 MG/1 ML SYRINGE IV PRN ×7 (00:19→22:57)
[2022-01-11 00:25] LABS: Basophils % 0.3 % (0.0-0.8); Eosinophils % 0.1 % (0.00-10.9); Hematocrit 33.4 VOL% (35.7-47.0); Hemoglobin 10.8 GM/DL (12.0-16.0); Immature Granulocytes % 5.2 %; Immature Granulocytes Absolute 0.49 #; Lymphocytes # 0.7 10*3/uL (1.4-4.0); Lymphocytes % 7.1 % (21.3-54.2); Mean Corpuscular HGB Conc 32.3 GM/DL (32-36); Mean Corpuscular Volume 89.5 FL (87-102); Mean Platelet Volume 12.2 FL (9.6-12.0); Monocytes # 0.6 10*3/uL (0.11-0.8); Monocytes % 5.9 % (1.7-12.7); NRBC # 0.05 10*3/uL; Neutrophils % 81.4 % (38.7-73.9); Platelet Count 119 T/CUMM (130-400); Red Blood Count 3.73 MC/CUMM (3.8-5.5); Red Cell Distribution Width 17.3 % (9.3-17.3); White Blood Count 9.4 T/CUMM (4-12)
[2022-01-11] MEDS: PIPERACILLIN/TAZOBACTAM 3,375 MG in SODIUM CHLORIDE 0.9% 100 ML IV SCH ×3 (00:30→16:59)
[2022-01-11] MEDS ORDERED: SODIUM CHLORIDE 0.9% 1,000 ML IV SCH (00:30)
[2022-01-11 00:46] LABS: Lymphocytes 8 % (20-55)
[2022-01-11 00:47] LABS: Platelet Estimate Normal; Total Cells Counted 100
[2022-01-11] MEDS: POTASSIUM CHLORIDE 20 MEQ TABLET PO PRN ×4 (01:30→11:45)
[2022-01-11] MEDS ORDERED: SODIUM CHLORIDE 0.9% 500 ML IV ONE (02:44)
[2022-01-11 03:56] LABS: Basophils % 0.5 % (0.0-0.8); Eosinophils % 0.1 % (0.00-10.9); Hematocrit 32.8 VOL% (35.7-47.0); Hemoglobin 10.3 GM/DL (12.0-16.0); Immature Granulocytes Absolute 0.41 #; Lymphocytes # 0.7 10*3/uL (1.4-4.0); Lymphocytes % 8.8 % (21.3-54.2); Mean Corpuscular HGB Conc 31.4 GM/DL (32-36); Mean Corpuscular Volume 91.6 FL (87-102); Mean Platelet Volume 12.6 FL (9.6-12.0); Monocytes # 0.6 10*3/uL (0.11-0.8); Monocytes % 6.8 % (1.7-12.7); NRBC # 0.03 10*3/uL; Neutrophils % 78.8 % (38.7-73.9); Platelet Count 119 T/CUMM (130-400); Red Blood Count 3.58 MC/CUMM (3.8-5.5); Red Cell Distribution Width 17.4 % (9.3-17.3); White Blood Count 8.2 T/CUMM (4-12)
[2022-01-11 04:14] LABS: Calcium 9.5 MG/DL (8.5-10.1); Osmolality,Calculated 279.4 MOS/KG (273-304); Potassium 3.4 MMOL/L (3.5-5.1)
[2022-01-11 04:23] LABS: Lymphocytes 7 % (20-55)
[2022-01-11 04:24] LABS: Platelet Estimate Decreased; Total Cells Counted 100
[2022-01-11] MEDS: LORazepam 2 MG/1 ML VIAL IV PRN ×2 (05:35→19:44)
[2022-01-11 06:01] LABS: ABG Base Excess 6.6 MMOL/L (-2.5-2.5); ABG HCO3 30.3 MMOL/L (20-26); ABG Oxygen Saturation 91.4 % (95-100); ABG PCO2 37.8 MM HG (35-48); ABG PH 7.508 (7.35-7.45); ABG PO2 57.8 MM HG (80-95); ABG TCO2 26.8 MMOL/L (23-27)
[2022-01-11] MEDS: levETIRAcetam 500 MG TABLET PO SCH ×2 (08:23→22:57)
[2022-01-11] MEDS: POLYETHYLENE GLYCOL POWDER 17 GM PACK PO SCH (08:23)
[2022-01-11] MEDS: HYDROCORTISONE 100 MG VIAL IV SCH ×2 (08:26→22:57)
[2022-01-11] MEDS ORDERED: fentaNYL 50 MCG/HR PATCH TRANSDERM SCH (09:00)
[2022-01-11] MEDS: METOPROLOL TARTRATE 5 MG/5 ML VIAL IV PRN ×2 (11:53→17:48)
[2022-01-11] MEDS: METOPROLOL TARTRATE 25 MG TABLET PO SCH (22:57)
[2022-01-11] MEDS: ENOXAPARIN 40 MG/0.4 ML SYRINGE SUBCUT SCH (22:57)
[2022-01-12] MEDS: PIPERACILLIN/TAZOBACTAM 3,375 MG in SODIUM CHLORIDE 0.9% 100 ML IV SCH ×2 (00:05→08:55)
[2022-01-12] MEDS: INSULIN REGULAR 100 UNIT/ML SUBCUT SCH ×3 (00:29→12:15)
[2022-01-12] MEDS: MORPHINE 2 MG/1 ML SYRINGE IV PRN ×3 (01:57→08:49)
[2022-01-12] MEDS: METOPROLOL TARTRATE 5 MG/5 ML VIAL IV PRN (02:22)
[2022-01-12 05:28] LABS: Basophils % 0.4 % (0.0-0.8); Hematocrit 33.4 VOL% (35.7-47.0); Hemoglobin 10.6 GM/DL (12.0-16.0); Immature Granulocytes % 3.9 %; Immature Granulocytes Absolute 0.35 #; Lymphocytes # 0.7 10*3/uL (1.4-4.0); Lymphocytes % 7.6 % (21.3-54.2); Mean Corpuscular HGB Conc 31.7 GM/DL (32-36); Mean Corpuscular Volume 89.5 FL (87-102); Mean Platelet Volume 12.8 FL (9.6-12.0); Monocytes # 0.4 10*3/uL (0.11-0.8); Neutrophils % 84.1 % (38.7-73.9); Platelet Count 130 T/CUMM (130-400); Red Blood Count 3.73 MC/CUMM (3.8-5.5); Red Cell Distribution Width 17.3 % (9.3-17.3); White Blood Count 8.9 T/CUMM (4-12)
[2022-01-12 05:43] LABS: Calcium 10.6 MG/DL (8.5-10.1)
[2022-01-12 05:44] LABS: Bilirubin,Total 0.5 MG/DL (0.20-1.00); Potassium 3.6 MMOL/L (3.5-5.1); Total Protein 6.5 G/DL (6.4-8.2)
[2022-01-12 06:49] LABS: Lymphocytes 5 % (20-55); Platelet Estimate Adequate; Total Cells Counted 100
[2022-01-12 09:11] VITALS: BP 120/63
[2022-01-12] MEDS: HYDROCORTISONE 100 MG VIAL IV SCH (10:38)
[2022-01-12] MEDS: POLYETHYLENE GLYCOL POWDER 17 GM PACK PO SCH (10:38)
[2022-01-12] MEDS: levETIRAcetam 500 MG TABLET PO SCH (10:39)
[2022-01-12] MEDS: METOPROLOL TARTRATE 25 MG TABLET PO SCH (10:40)
[2022-01-12] MEDS: LORazepam 2 MG/1 ML VIAL IV PRN (13:18)
== END 2022-01-12 14:25 | disposition hospice, home (50) | DRG 133 ==
LOC: N.ED 14:19 → N.EDINP 17:40 → SUATTDRO 17:40 → N.CC 18:15 → N.ICU 01-08 17:59 → N.TELES 01-11 14:50
PROVIDERS: ADMIT Family Medicine; ATTEND Internal Medicine